=== PATIENT | female | born 1990 ===

== ENCOUNTER 2018-12-14 06:59 | Inpatient (IN) | payer OTHER ==
[~2018-12-14] VITALS: Ht 152.4 cm; Wt 69.1 kg
[2018-12-15] VITALS (55 sets, daily range): BP systolic 92–135; BP diastolic 44–83; PULSE 66–155; TEMP 97.4–99.3
--- NOTE | 2018-12-15 07:30 | NUR ---
Pt arrives on unit ambulatory for EIOL. G1L0 40.5 weeks gestation. Spouse present. Changed into a clean gown. EFM and toco applied. VSS. Pt denies vaginal bleeding, leaking of fluid, and regular contractions. Reports good movement. IV started in LW. Labs drawn. LR infusing. Admission assessment completed. Consents signed. Pt updated on plan of care. Safety reviewed. Call light within reach. Bed in low position and locked. No questions or concerns at this time.
[2018-12-15] MEDS ORDERED: PRENATAL MVI (07:46)
[2018-12-15 08:17] LABS: BASO % 0.2 % (0.0-2.0); EOS # 0.1 (0.0-0.7); EOS % 0.4 % (0-4.0); GRAN # 9.2 (1.4-6.5); GRAN % 73.2 % (42.2-75.2); HEMATOCRIT 41.6 % (37.0-47.0); HEMOGLOBIN 14.4 g/dl (12.5-16.0); LYMPH # 2.2 (1.2-3.4); LYMPH % 17.7 % (20.0-51.0); MEAN CELL VOLUME 92 fl (80.0-100.0); MEAN CORPUSCULAR HEMOGLOBIN 32 pg (27.0-31.0); MEAN CORPUSCULAR HGB CONC 35 g/dl (33.0-37.0); MEAN PLATELET VOLUME 8.4 fl (7.4-10.4); MONO # 0.9 (0.1-0.6); MONO % 7.2 % (1.7-9.3); PLATELET COUNT 247 K/mm3 (130-400); RED BLOOD COUNT 4.53 M/mm3 (4.10-5.30)
--- NOTE | 2018-12-15 10:50 | NUR ---
Pt sitting upright for epidural placement. Difficulty tracing FHR due to maternal position. This RN at bedside adjusting monitors. FHR audible. 1058-Test dose administered by [place] Beal CRNA. No adverse effects noted. See anesthesia record. 1103-Pt repositioned WL. Updated on plan of care. Safety reviewed. Call light within reach. No questions or concerns at this time.
--- NOTE | 2018-12-15 16:21 | NUR ---
Late deceleration noted. RN at bedside. Pt repositioned RL. LR bolus infusing. O2 applied at 10L via simple mask. Pitocin turned off. FHR continues to descend into the 70s. Dr. Roger notified and requested to unit. Difficulty obtaining BP due to maternal movement. Ephedrine given 10mg IV. See EMAR. Pt repositioned to . FSE placed per this RN. Dr. Roger at bedside. SVE per provider /. FHR returns to 150 baseline. 1635-Second dose of ephedrine given. See EMAR. Pt repositioned WL. Updated on plan of care. Safety reviewed. Call light within reach. Dr. Roger present on unit. Continues to monitor FHR.
[2018-12-15] MEDS ORDERED: MOTRIN 800800 MG/TAB PO (16:52)
[2018-12-15] MEDS ORDERED: PERCOCET 325 MG1 TA2 PO (16:52)
--- NOTE | 2018-12-15 19:28 | NUR ---
190 - Dr. Roger at bedside for SVE. Dr. Roger able to reduce remaining cervix. Pt educated on pushing techniques. Dr. Roger remains at perineum, pt pushing well with contractions. Valentine removed 150 cc. 1909 - Pt continues to push well with contractions. Late decelerations noted after pushes. Dr. Roger remains at perineum. 1919 - Pt continues pushing well. Late decelerations continue with pushes. Marked variability also noted in between contractions. Dr. Roger discussing plan of care and reviewing risks and benefits of doing a vacuum extracted delivery. Pt and spouse verbalize understanding of vacuum and agreeable to plan of care. 1921 - Nursery called for delivery. Pt positioned into footplates. 1923 - Vacuum applied successfully. Pumped to green by Dr. Roger. Gentle traction applied to vacuum twice with pushes. Suction released. 1924 - Vacuum applied successfully. Pumped to green by Dr. Roger. Gentle traction applied with initial push. Pop off with second push. 1925 - Vacuum applied successfully. Pumped to green by Dr. Roger. Gentle traction applied with initial push. Pop off with second push. 1927 - Pt able to push to deliver viable infant girl. Baby placed on mothers abdomen. Cord clamped and cut by Dr. Roger. Care of infant assumed to nursery MARTIN May. Cord blood obtained. Pitocin off. 1930 - Delivery of placenta. Fundal massage started, fundus firm and down 1 from umbilicus. Pitocin restarted at 333 ml/hr per protocol. Dr. Roger performing bimanual for retained membranes. Second degree laceration noted and repaired by Dr. Roger. 1944. Periwash performed. Ice pack applied to perineum. New chux placed under patient. Pt repositioned to semi fowlers. recovery started.
--- NOTE | 2018-12-15 22:45 | NUR ---
Fundus off to left side during fundal check. Educated pt on importance of emptying bladder but would prefer her to not ambulate at this time. Pt requesting to try to use bedpan. 450 bloody urine out.
[2018-12-16] VITALS (10 sets, daily range): BP systolic 91–108; BP diastolic 53–58; PULSE 81–103; TEMP 97.5–99.4
--- NOTE | 2018-12-16 02:30 | NUR ---
Pt bleeding with much improvement. Maternal HR lower as well. Pt able to lift and hold legs off of bed for 5 seconds. Pt positioned to sitting on edge of bed. Epidural catheter removed, tip intact, pt tolerated well. Pt ambulated to bathroom with 1 person assist. Pt able to void 300 cc. Pericare explained and performed. New clean gown on. New panties and pad applied. Pt to wheelchair and transferred to room 214 with belongings.
[2018-12-16 07:25] LABS: MEAN CELL VOLUME 93 fl (80.0-100.0); MEAN CORPUSCULAR HGB CONC 34 g/dl (33.0-37.0); MEAN PLATELET VOLUME 8.4 fl (7.4-10.4); PLATELET COUNT 193 K/mm3 (130-400); RED BLOOD COUNT 3.65 M/mm3 (4.10-5.30)
[2018-12-16 07:31] LABS: HEMATOCRIT 33.9 % (37.0-47.0); HEMOGLOBIN 11.6 g/dl (12.5-16.0); MEAN CORPUSCULAR HEMOGLOBIN 32 pg (27.0-31.0)
[2018-12-16 08:01] LABS: BAND 38 % (0-10); EOSINOPHIL 1 % (0-4); LYMPHOCYTE 10 % (20.0-51.0); NEUTROPHILS 43 % (42.0-75.2)
[2018-12-16 08:04] LABS: PLATELET ESTIMATE NORMAL (NORMAL)
--- NOTE | 2018-12-16 10:32 | NUR ---
Initial visit; Mom was indisposed, Billet Inspector spoke with Dad and offered congratulations for the of their daughter and thanked them for choosing [facility].
--- NOTE | 2018-12-17 07:30 | NUR ---
Rests in bed, alert, denies any needs at this time.
[2018-12-17 08:30] VITALS: BP 103/65; PULSE 84; TEMP 98.2
--- NOTE | 2018-12-17 09:30 | NUR ---
Dr. Zuleta here, visits with patient.
[2018-12-17 16:45] VITALS: BP 104/72; PULSE 89; TEMP 98.2
--- NOTE | 2018-12-17 19:00 | NUR ---
1899- NURSE TO ROOM TO DISMISS PT WAS PASSED ON IN REPORT. PT IS IN BED IN GOWN AND HAS NOT PACKED ANYTHING. ENCOURAGED PT TO PACK HER THINGS AND TO PREPARE FOR DISMISSAL. PT STATES SHE WAS "WAITING ON YOU." TEACHING PROVIDED WELL DISMISSAL INSTRUCTIONS, PRESCRIPTIONS GIVEN, BANDS CUT. TOLD PT NURSE WOULD RETURN TO CHECK ON THEM. 1999- NRUSE TO ROOM. PT STILL NOT READY, DRESSED IN GOWN AND LYING IN BED. ENCOURAGED PT TO PACK HER THINGS AND PREPARE HERSELF AND BABY FOR DISMISSAL. OFFERED HELP, PT DENIES. 2054- PT READY FOR DISMISSAL. NURSE TO ROOM AND CHECKS BABY IN CAR SEAT AND OFFERS PARENTS ASSISTANCE WITH TIGHTENING STRAPS. 2099- PT DISMISSED AMBULATORY TO HOME ACCOMPANIED BY SPOUSE AND BUSINESS ECONOMIST.
== END 2018-12-17 21:00 | disposition home or self-care (01) | DRG 807 ==
LOC: LDR 12-15 06:59 → OB 12-15 07:20 → LDR 12-15 07:20 → OB 12-16 02:45
PROVIDERS: Student in an Organized Health Care Education/Training Program; ADMIT Obstetrics & Gynecology
PROC: 10D07Z6 Extraction of Products of Conception, Vacuum, Via Natural or Artificial Opening (ICD-10-PCS; principal; 2018-12-15)
PROC: 0KQM0ZZ Repair Perineum Muscle, Open Approach (ICD-10-PCS; 2018-12-15)
PROC: 3E033VJ Introduction of Other Hormone into Peripheral Vein, Percutaneous Approach (ICD-10-PCS; 2018-12-15)
PROC: 10907ZC Drainage of Amniotic Fluid, Therapeutic from Products of Conception, Via Natural or Artificial Opening (ICD-10-PCS; 2018-12-15)
DX: O48.0 Post-term pregnancy (principal); Z37.0 Single live birth; Z3A.40 40 weeks gestation of pregnancy; O76 Abnormality in fetal heart rate and rhythm complicating labor and delivery; O70.1 Second degree perineal laceration during delivery; O99.02 Anemia complicating childbirth
CPT/HCPCS: J0690; J2210; J2405; J2590; J7120